=== PATIENT | male | born 1990 | race Caucasian/White ===

== ENCOUNTER 2017-09-13 19:08 | Emergency (ER) | payer MEDICAID, SELFPAY ==
[2017-09-13 19:09] VITALS: BP 135/77; PULSE 87; RESP 16; TEMP 36.9; O2SAT 99; BMI 33.9
--- NOTE | 2017-09-13 21:36 | ED.VISSUMM ---
- ER Visit Summary Date of Service: 09/13/17 Chief Complaint: headache History of Present Illness: The patient is a 27 M with headache for one day. Patient states he woke up with a mild headache that gradually worsened throughout the day. He took a nap to see if that would help and his headache was worse when he woke up. He has associated nausea. No blurry or double vision. He has had 1 prior headache to this 1 that he describes as a migraine. It is worse at the temples bilaterally. Patient denies any fever, cough, congestion, numbness or weakness in the arms or legs, or other complaints. Denies medical history other than a prior similar headache and a family history of migraines. Physical Examination: Vital signs: afebrile, hemodynamically stable, no hypoxia on room air General: well nourished, well developed, in no distress, sitting in bed with the lights off Skin: warm, dry, no rash, no pallor HEENT: normocephalic and atraumatic; PERRL, EOMI, nystagmus, moist mucous membranes neck is supple with full active range of motion, no meningismus Cardiovascular: regular rate and rhythm without murmurs, no peripheral edema, 2+ pulses all distal extremities Respiratory: No increased work of breathing, lungs are clear to auscultation bilaterally, no rales, rhonchi or wheezing Abdominal: Abdomen is soft, nontender with normoactive bowel sounds, no guarding or rebound, no masses MSK: Moves all extremities, no deformities, normal strength Neuro: Awake and alert, oriented ?4. No facial droop, sensation and motor function intact and symmetric Test Results: [] Emergency Department Course and Treatment: Patient was given IV fluids, Toradol, Benadryl and Compazine. No imaging was performed, as patient had a gradual onset of the headache and no risk factors/low suspicion for intracranial hemorrhage or mass lesion. After medications, patient had complete resolution of his headache and requested discharge home. He was able to ambulate in the light without any difficulty. Patient discharged home. Treatment Plan: [] Disposition: [] Impression: Migraine headache, resolved This note was generated with [employer] dictation software. It may contain incorrect words, spelling, and punctuation that were not noted in review of the chart prior to signing ED Disposition - Plan for ED Patient: Disposition: Home or Assisted Living Chief Complaint: Headache Instructions: ED Headache Migraine Referrals: Jojo De Los Santos DO [Primary Care Provider] - 3-5 Days if not improving
--- NOTE | 2017-09-13 21:39 | ED.DCSUM_ITS ---
- ER Visit Summary Date of Service: 09/13/17 Chief Complaint: headache History of Present Illness: The patient is a 27 M with headache for one day. Patient states he woke up with a mild headache that gradually worsened throughout the day. He took a nap to see if that would help and his headache was worse when he woke up. He has associated nausea. No blurry or double vision. He has had 1 prior headache to this 1 that he describes as a migraine. It is worse at the temples bilaterally. Patient denies any fever, cough, congestion, numbness or weakness in the arms or legs, or other complaints. Denies medical history other than a prior similar headache and a family history of migraines. Physical Examination: Vital signs: afebrile, hemodynamically stable, no hypoxia on room air General: well nourished, well developed, in no distress, sitting in bed with the lights off Skin: warm, dry, no rash, no pallor HEENT: normocephalic and atraumatic; PERRL, EOMI, nystagmus, moist mucous membranes neck is supple with full active range of motion, no meningismus Cardiovascular: regular rate and rhythm without murmurs, no peripheral edema, 2 + pulses all distal extremities Respiratory: No increased work of breathing, lungs are clear to auscultation bilaterally, no rales, rhonchi or wheezing Abdominal: Abdomen is soft, nontender with normoactive bowel sounds, no guarding or rebound, no masses MSK: Moves all extremities, no deformities, normal strength Neuro: Awake and alert, oriented ?4. No facial droop, sensation and motor function intact and symmetric Test Results: [] Emergency Department Course and Treatment: Patient was given IV fluids, Toradol , Benadryl and Compazine. No imaging was performed, as patient had a gradual onset of the headache and no risk factors/low suspicion for intracranial hemorrhage or mass lesion. After medications, patient had complete resolution of his headache and requested discharge home. He was able to ambulate in the light without any difficulty. Patient discharged home. Treatment Plan: [] Disposition: [] Impression: Migraine headache, resolved This note was generated with [employer] dictation software. It may contain incorrect words, spelling, and punctuation that were not noted in review of the chart prior to signing ED Disposition - Plan for ED Patient: Disposition: Home or Assisted Living Chief Complaint: Headache Instructions: ED Headache Migraine Referrals: Jojo De Los Santos DO [Primary Care Provider] - 3-5 Days if not improving
[2017-09-13] MEDS: Ketorolac 30 MG/ML Syringe IV (22:18)
[2017-09-13] MEDS: DiphenhydrAMINE 50 MG/ML Syringe IV (22:18)
[2017-09-13] MEDS: 0.9% Normal Saline 1,000 ML 999 ML IV (22:18)
--- NOTE | 2017-09-13 23:08 | ED.RN ---
PT STATES HEADACHE RESOLVED AND WOULD LIKE TO GO HOME, DR. ADLER MADE AWARE.
--- NOTE | 2017-09-13 23:10 | ED.DEP ---
ED Disposition - Plan for ED Patient: Disposition: Home or Assisted Living Chief Complaint: Headache Instructions: ED Headache Migraine Referrals: Jojo De Los Santos DO [Primary Care Provider] - 3-5 Days if not improving
[2017-09-13 23:28] VITALS: BP 139/75; PULSE 82; RESP 17; O2SAT 100
--- NOTE | 2017-09-13 23:29 | ED.RN ---
IV DC'ED, CATHETER INTACT, SMALL GAUZE DRESSING PLACED. DISCHARGE INSTRUCTIONS GIVEN TO AND REVIEWED WITH PATIENT, PATIENT DENIES QUESTIONS OR CONCERNS AND VOICES UNDERSTANDING OF DISCHARGE INSTRUCTIONS. PT AMBULATES OUT OF ROOM WITHOUT DIFFICULTY.
== END 2017-09-13 23:30 | disposition home or self-care (01) ==
PROVIDERS: Emergency Provider Emergency Medicine; Family Provider Family Medicine; PCP Family Medicine
DX: G43.909 Migraine, unspecified, not intractable, without status migrainosus (principal); Z72.0 Tobacco use
CPT/HCPCS: 96361; 96374; 96375; 99283; J7030; A4216

== ENCOUNTER 2018-05-06 18:09 | Emergency (ER) | payer MEDICAID, SELFPAY ==
[2018-05-06 18:10] VITALS: BP 140/88; PULSE 71; RESP 17; TEMP 36.9; O2SAT 100; BMI 32.1
--- NOTE | 2018-05-06 18:22 | RAD_ITS ---
STUDY: X-RAY - LEFT SHOULDER REASON FOR EXAM: Male, 27 years old. Pain TECHNIQUE: 4 view(s) of the shoulder. COMPARISON: None. FINDINGS: Normal glenohumeral articulation. Normal acromioclavicular joint. Normal acromion. Old healed fracture of the mid to distal clavicle Normal humeral head and visualized proximal humerus. The soft tissue structures are unremarkable. Normal visualized pulmonary apex. RAD/Shoulder min 2 Views IMPRESSION: Old healed fractures of left clavicle. No evidence for acute fracture or dislocation Electronically Signed: Jose Cruz Ariza MD at 19:12 EST , Service support ,
[2018-05-06 18:24] VITALS: BP 138/82; PULSE 78; RESP 16; O2SAT 97
--- NOTE | 2018-05-06 20:36 | ED.VISSUMM ---
- ER Visit Summary Date of Service: 05/06/18 Chief Complaint: Left shoulder pain History of Present Illness: The patient is a 27 M who presents with left shoulder pain that has been getting progressively worse over the past 1/2 weeks. Patient states the pain is constant. Patient states the pain as a constant ache but sharp with movement. Patient admits to some intermittent tingling down his left deltoid area. Patient denies any weakness. Patient denies any specific trauma or injury. Patient states the pain does radiate up into his neck. Physical Examination: Vital signs are stable. Patient is afebrile. Patient is in no acute distress. Musculoskeletal exam reveals tenderness over the left shoulder. Range of motion was limited all motions of the left shoulder secondary to pain. There is no deformity noted. Radial pulses are equal bilaterally. Sensation was intact to light touch in the radial, median, and ulnar areas. The remaining physical exam is within normal limits. Test Results: X-rays of the left shoulder were obtained. There is no acute fracture or osteophyte Emergency Department Course and Treatment: Patient was given a prescription for Naprosyn. Patient was instructed to use ice to the area. Patient was instructed to follow-up with his primary care physician for further evaluation in 7-10 days. Patient understood and was agreeable with the plan. All questions were answered. Disposition: Discharge home Impression: Left shoulder strain This note was generated with [employer] dictation software. It may contain incorrect words, spelling, and punctuation that were not noted in review of the chart prior to signing ED Disposition - Plan for ED Patient: Disposition: Home or Assisted Living Chief Complaint: Upper Extremity Injury Diagnosis: Left shoulder pain Instructions: ED Sprain Shoulder Prescriptions: Naproxen [Naprosyn] 500 mg PO BID PRN #20 tab Referrals: Jojo De Los Santos DO [Primary Care Provider] -
== END 2018-05-06 20:48 | disposition home or self-care (01) ==
PROVIDERS: Emergency Provider Emergency Medicine; Family Provider Family Medicine; PCP Family Medicine
DX: S46.912A Strain of unspecified muscle, fascia and tendon at shoulder and upper arm level, left arm, initial encounter (principal); R20.2 Paresthesia of skin; R51 Headache; R11.0 Nausea; X58.XXXA Exposure to other specified factors, initial encounter; Y93.9 Activity, unspecified; Y92.9 Unspecified place or not applicable; Z72.0 Tobacco use
CPT/HCPCS: 73030; 99282

== ENCOUNTER 2018-07-05 15:06 | Emergency (ER) | payer MEDICAID, SELFPAY ==
[2018-07-05 15:07] VITALS: BP 123/70; PULSE 95; RESP 16; TEMP 36.6; O2SAT 96; BMI 33.5
[2018-07-05] MEDS: Ketorolac 60 MG/2 ML Vial IM (15:39)
--- NOTE | 2018-07-05 15:45 | RAD_ITS ---
STUDY: X-RAY - LUMBAR SPINE REASON FOR EXAM: Male, 28 years old. Low back pain. No known injury. TECHNIQUE: 3 view(s) of the lumbar spine were obtained. COMPARISON: None FINDINGS: There is straightening of the normal lumbar lordosis. There is no substantial scoliosis. There is a normal alignment of the vertebrae. Normal vertebral bodies and endplates. Mild degree of disc space narrowing at the L5-S1 level. The soft tissue structures are unremarkable. RAD/Lumbar Spine 2 or 3 Views IMPRESSION: There is straightening of the normal lumbar lordosis. Mild degree of disc space narrowing at the L5-S1 level. Electronically Signed: Franco Donis MD at 16:03 EST Tel [phone], Service support ,
--- NOTE | 2018-07-05 16:26 | ED.VISSUMM ---
- ER Visit Summary Date of Service: 07/05/18 Chief Complaint: Back pain History of Present Illness: The patient is a 28 M who presents with back pain that has been getting worse over the past several days. Patient states he was walking when he felt some pain in his back. Patient states pain is constant throbbing but sharp at times. Patient states pain is worse with movement. Patient states the pain radiates to his left knee. Patient denies any paresthesias or weakness. Patient denies any bowel or bladder changes. Patient denies any saddle anesthesia. Patient denies any specific trauma or injury. Patient states he has had a history of prior back pain and was placed on muscle relaxers in the past. Patient states he took a muscle relaxer today with no relief. Physical Examination: Vital signs are stable. Patient is afebrile. Patient is in no acute distress. Neck is supple. Trachea is midline. There is no JVD noted. Oral mucosa is pink and moist. Musculoskeletal exam reveals tenderness over the lower lumbar spine in the midline. There is no bony crepitance or step-off. There is no edema or ecchymosis. There is some mild paraspinal tenderness as well. Straight leg raises were negative bilaterally. Strength is 5/5 bilaterally upper and lower extremities. There are no sensory deficits noted. Deep tendon reflexes are 2+/4 bilaterally in the Achilles and patellar reflexes. The remaining physical exam is within normal limits. Test Results: X-rays of the lumbar spine were obtained. There is no acute process noted. Emergency Department Course and Treatment: Patient was given an injection of Toradol here. Patient had some improvement with this. Patient was given 1 dose of [place] here. Patient was instructed use ice to the area. Patient was given prescriptions for Naprosyn for pain. Patient was also given a prescription for prednisone. Patient was instructed to follow-up with his primary care physician in 5-7 days. Patient was given a note for work to limit his bending and lifting. Patient understood and was agreeable with the plan. All questions were answered. Disposition: Discharge home Impression: Acute low back pain This note was generated with [employer] software. It may contain incorrect words, spelling, and punctuation that were not noted in review of the chart prior to signing ED Disposition - Plan for ED Patient: Disposition: Home or Assisted Living Chief Complaint: Back Diagnosis: Acute low back pain Instructions: ED Neck Back Pain General, ED Sciatica Prescriptions: Naproxen [Naprosyn] 500 mg PO BID PRN #20 tab predniSONE tablet 60 mg PO DAILY #15 tab Referrals: Jojo De Los Santos DO [Primary Care Provider] -
[2018-07-05] MEDS: HYDROcodone Bitartrate/Apap 5/325 Tablet PO (16:37)
[2018-07-05 16:38] VITALS: BP 121/69; PULSE 72; RESP 15; O2SAT 98
== END 2018-07-05 16:39 | disposition home or self-care (01) ==
PROVIDERS: Emergency Provider Emergency Medicine; Family Provider Family Medicine; PCP Family Medicine
DX: M54.5 Low back pain (principal); R51 Headache; Z72.0 Tobacco use
CPT/HCPCS: 72100; 96372; 99283

== ENCOUNTER 2018-11-17 22:27 | Emergency (ER) | payer SELFPAY ==
[2018-11-17 22:28] VITALS: BP 130/80; PULSE 102; RESP 16; TEMP 35.9; O2SAT 96; BMI 34.4
--- NOTE | 2018-11-17 22:55 | ED.VISSUMM ---
- ER Visit Summary Date of Service: 11/17/18 Chief Complaint: Bilateral foot pain History of Present Illness: The patient is a 28 M who presents with bilateral foot pain. This started a couple of hours ago. He complains of pain along the bottoms of his feet. He also complains of pain behind his ear on the right side of his neck that began after turning his head. It is worse with palpation or turning his head. No fevers chest pain shortness of breath nausea vomiting. He has not tried any medications at home. He states he does not like to take medications unless he has to. Physical Examination: Afebrile heart rate 102 vitals otherwise unremarkable Patient has pain at the base of the occiput on the right at the insertion of the paraspinal musculature this is worse with turning his head no midline tenderness Heart regular rate and rhythm Lungs are clear Patient has tenderness along the plantar surface of both feet no focal bony tenderness active full range of motion brisk capillary refill normal dorsalis pedis pulses Test Results: Not indicated Emergency Department Course and Treatment: Patient's neck pain appears to be musculoskeletal in nature. His foot pain is likely related to plantar fasciitis. He was advised on supportive care and discharged home. Treatment Plan: [] Disposition: Discharge Impression: Plantar fasciitis Neck strain This note was generated with [employer] dictation software. It may contain incorrect words, spelling, and punctuation that were not noted in review of the chart prior to signing ED Disposition - Plan for ED Patient: Referrals: Jojo De Los Santos DO [Primary Care Provider] -
--- NOTE | 2018-11-17 22:57 | ED.DEP ---
ED Disposition - Plan for ED Patient: Instructions: ED Plantar Fasciitis Referrals: Jojo De Los Santos DO [Primary Care Provider] -
[2018-11-17 23:01] VITALS: BP 128/78; PULSE 98; RESP 16; O2SAT 97
== END 2018-11-17 23:02 | disposition home or self-care (01) ==
LOC: ED 23:00
PROVIDERS: Emergency Provider Emergency Medicine; Family Provider Family Medicine; PCP Family Medicine
DX: M72.2 Plantar fascial fibromatosis (principal); S16.1XXA Strain of muscle, fascia and tendon at neck level, initial encounter; X58.XXXA Exposure to other specified factors, initial encounter; Y93.9 Activity, unspecified; Y92.9 Unspecified place or not applicable; Z72.0 Tobacco use
CPT/HCPCS: 99282

== ENCOUNTER 2019-02-07 16:58 | Emergency (ER) | payer SELFPAY ==
[2019-02-07 17:00] VITALS: BP 135/81; PULSE 115; RESP 16; TEMP 36.1; O2SAT 97; BMI 33.7
--- NOTE | 2019-02-07 17:46 | ED.VISSUMM ---
- ER Visit Summary Date of Service: 02/07/19 Chief Complaint: Sunburn History of Present Illness: The patient is a 28 M presenting with sunburn. Patient states that he was at a water park over the past 3 days. He woke up this morning and had burning redness to his left upper arm. 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 He denies injury. He states he tried aloe at home. Last tetanus is unknown. Physical Examination: Vitals are stable. Patient is afebrile. Alert no acute distress. HEENT exam is unremarkable. Neck is supple. Lungs are clear and equal bilaterally. Heart is regular rate and rhythm. Extremities 15 x 7 cm area of erythema with blistering left upper arm, erythema is not circumferential. Normal distal pulses. Skin is warm and dry. No focal neurologic deficit. Remainder of exam is unremarkable. Emergency Department Course and Treatment: Patient was given tetanus IM. He was given [place] x1. Advised burn care instructions. Advised to use cool compresses and aloe. Advised to follow-up with primary care physician. Advised return to ED if worsening complaints. Disposition: Discharge home Impression: Sunburn This note was generated with [employer] dictation software. It may contain incorrect words, spelling, and punctuation that were not noted in review of the chart prior to signing ED Disposition - Plan for ED Patient: Referrals: Jojo De Los Santos DO [Primary Care Provider] -
--- NOTE | 2019-02-07 17:49 | DCINST.ED_ITS ---
ED Disposition - Plan for ED Patient: Instructions: BURN, Thermal, (1'2'3') w/ Dressing Prescriptions: Hydrocodone Bitart/Apap 5-325 [[place] 5MG-325MG] 1 tablet PO Q6H PRN PRN 3 Days #6 tablet PRN Reason: Pain Referrals: Jojo De Los Santos DO [Primary Care Provider] -
[2019-02-07] MEDS: Diphth,Pertuss(Acell),Tet Vac 0.5 ML Vial IM (17:57)
[2019-02-07 18:14] VITALS: PULSE 81; RESP 19; O2SAT 98
--- NOTE | 2019-02-07 18:14 | ED.RN ---
THIS NURSE REVIEWED D/C INSTRUCTIONS WITH PT. PT VERBALIZED UNDERSTANDING OF INSTRUCTIONS. PT DENIES FURTHER NEEDS OR QUESTIONS AT THIS TIME
== END 2019-02-07 18:15 | disposition home or self-care (01) ==
PROVIDERS: Emergency Provider Emergency Medicine; Family Provider Family Medicine; PCP Family Medicine
DX: L55.9 Sunburn, unspecified (principal); Z72.0 Tobacco use
CPT/HCPCS: 90471; 90715; 99283

== ENCOUNTER 2020-07-22 08:33 | Emergency (ER) | payer MEDICAID, SELFPAY ==
[2020-07-22 08:33] VITALS: BP 117/73; PULSE 107; RESP 18; TEMP 37; O2SAT 99; BMI 38.3
[2020-07-22 08:47] VITALS: O2SAT 100
--- NOTE | 2020-07-22 08:47 | EKG12_ITS ---
Test Reason : CP Blood Pressure : / mmHG Vent. Rate : 098 BPM Atrial Rate : 098 BPM P-R Int : 154 ms QRS Dur : 096 ms QT Int : 342 ms P-R-T Axes : 046 087 026 degrees QTc Int : 436 ms Normal sinus rhythm Normal ECG Confirmed by FEDERICO ARGUETA, LEWIS ([id number]), script editor PILI STINSON ([id number]) on 07/24/2020 11:04:01 AM Referred By: CHET Confirmed By:LEWIS CABALLERO MD
--- NOTE | 2020-07-22 08:55 | RAD_ITS ---
STUDY: X-RAY CHEST REASON FOR EXAM: Male, 30 years old. Chest pain while at work TECHNIQUE: Single AP portable view of the chest. COMPARISON: Comparison is made with prior study dated 02/22/2017. FINDINGS: EKG electrodes are seen. Limited inspiratory effort. Mild increased linear markings at the lung bases suggestive of linear atelectasis. There is no demonstrated pleural abnormality. Normal size heart. Normal mediastinum and izzy. Normal visualized pulmonary arteries. Normal visualized aortic arch and descending thoracic aorta. Normal visualized thoracic spine. Normal visualized ribs, clavicles, and shoulders. There is no demonstrated abnormality of the visualized soft tissue structures of the upper abdomen. RAD/Chest 1 View (Portable) IMPRESSION: Linear atelectasis at the lung bases. Electronically Signed: Franco Donis MD at 9:09 EST , Service support ,
--- NOTE | 2020-07-22 08:56 | ED.VIS.GEN ---
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 Symptoms were noticed by him at 5 AM when he woke to go to work. He states that that point it was a ache across his chest. He did not think much of it as he has been experiencing some shoulder and back aches for a while. He tells me he was at work and began to get short of breath ache changed to a squeezing sensation and started bothering his left arm. It did not radiate anywhere else. No nausea vomiting or diaphoresis. He told his boss about it as he is having difficulty working and they called the ambulance. The ambulance performed a twelve-lead EKG was reviewed was reviewed by myself which does not show ST elevation or depression. The patient received aspirin and nitroglycerin. He states that the nitroglycerin helped a little bit but gave him a headache. He states now he pain is fully resolved except for a small sharp component just on the left side of his chest. He notes that he has a familial history of early coronary artery disease. He has never had a work-up before. He is a smoker. Past Medical History - Allergies and Home Meds Allergies/Adverse Reactions: Allergies cefaclor [From Ceclor] Allergy (Verified 07/22/20 08:35) Unknown Penicillins [PCN] Allergy (Verified 07/22/20 08:35) Unknown Sulfa (Sulfonamide Antibiotics) Allergy (Verified 07/22/20 08:35) Unknown Primary Care Physician: Jojo De Los Santos DO [STAFF PHYSICIAN] - Past Medical History: None Surgical History: noncontributory Smoking Status: Current every day smoker Drugs: None Review of Systems General: Denies: Chills, Fever, Sweats Eyes: Denies: Visual changes - bilaterally, Diplopia ENT: Denies: Rhinorrhea, Sore throat Cardiovascular: Reports: Chest pain. Denies: Palpitations Respiratory: Reports: Dyspnea. Denies: Cough, Dyspnea on exertion Gastrointestinal: Denies: Abdominal pain, Nausea, Vomiting, Diarrhea, Melena, Hematochezia Genitourinary: Denies: Dysuria, Hematuria, Frequency Musculoskeletal: Denies: Back pain, Extremity Pain Skin: Denies: Rash, Wounds Neurological: Denies: Headache, Weakness, Numbness Physical Exam Vital Signs/Narrative: Vital Signs Temp Pulse Resp BP Pulse Ox 07/22/20 08:47 100 07/22/20 08:33 98.6 F 107 H 18 117/73 99 Inital Vital Signs reviewed: Yes General: Well nourished, Well developed, Obese, No Acute Distress Head: Normocephalic, Atraumatic Eyes: Perrl, EOMI ENT: Moist mucous membranes, No rhinorrhea Neck: Supple, Nontender Cardiovascular: Regular rate, Regular rhythm, No murmurs Respiratory: No distress, CTA bilaterally, Chest nontender Abdomen: Soft, Nontender, Nondistended, Normal bowel sounds Back: Nontender, Normal Inspection Extremities: Nontender, No edema Skin: Normal color, No rash Neurological: Alert, Oriented x3, Cranial nerves II-XII grossly intact, Normal Strength, Normal Sensation Psychological: Normal affect, Normal Mood Diagnostic/Tx/Re-eval Clinical Impression(s) from Imaging Studies Chest X-Ray 07/22/20 08:55 IMPRESSION: Linear atelectasis at the lung bases. Electronically Signed: Franco Donis MD at 9:09 EST , Service support , Laboratory Last Values WBC 10.8 K/mm3 (4.4-11.0) 07/22/20 08:19 RBC 5.65 M/mm3 (4.6-6.2) 07/22/20 08:19 Hgb 16.3 g/dL (13.0-16.5) 07/22/20 08:19 Hct 49.8 % (40-54) 07/22/20 08:19 MCV 88.1 fL (80-94) 07/22/20 08:19 MCH 28.8 pg (27.0-32.0) 07/22/20 08:19 MCHC 32.7 g/dL (32-36) 07/22/20 08:19 RDW Std Deviation 42.2 fl (35.1-43.9) 07/22/20 08:19 RDW Coeff of Chris 12.9 % (11.6-14.6) 07/22/20 08:19 Plt Count 422 K/mm3 (150-450) 07/22/20 08:19 MPV 8.2 fl (6.2-12.0) 07/22/20 08:19 Immature Gran % (Auto) 0.400 % (0.0-0.9) 07/22/20 08:19 Neut % (Auto) 58.0 % (47-70) 07/22/20 08:19 Lymph % (Auto) 31.3 % (19-41) 07/22/20 08:19 [place] % (Auto) 7.8 % (0-10) 07/22/20 08:19 Eos % (Auto) 2.0 % (0-5) 07/22/20 08:19 Baso % (Auto) 0.5 % (0-1) 07/22/20 08:19 Absolute Neuts (auto) 6.2 X10^3/uL (2.0-7.7) 07/22/20 08:19 Absolute Lymphs (auto) 3.37 X10^3/uL (0.83-4.51) 07/22/20 08:19 Nucleated RBC % 0 % (0-5) 07/22/20 08:19 D-Dimer Quant (PE/DVT) <= 0.27 FEU/ug/m (0.27-0.49) 07/22/20 08:19 Sodium 139 mmol/L (136-145) 07/22/20 08:19 Potassium 3.9 mmol/L (3.5-5.1) 07/22/20 08:19 Chloride 104 mmol/L (98-107) 07/22/20 08:19 Carbon Dioxide 26.0 mmol/L (21.0-32.0) 07/22/20 08:19 Anion Gap 9 (5-15) 07/22/20 08:19 BUN 22 mg/dL (7-18) H 07/22/20 08:19 Creatinine 1.20 mg/dL (0.70-1.30) 07/22/20 08:19 Estim Creat Clear Calc 97.00 ml/min 07/22/20 08:19 Est GFR (MDRD) Af Amer 90 mL/min (>60) 07/22/20 08:19 Est GFR (MDRD) Non-Af 75 mL/min (>60) 07/22/20 08:19 BUN/Creatinine Ratio 18.3 RATIO (10-20) 07/22/20 08:19 Glucose 99 mg/dL (74-106) 07/22/20 08:19 Calcium 8.8 mg/dL (8.5-10.1) 07/22/20 08:19 Troponin I < 0.015 ng/mL (<0.045) 07/22/20 08:19 - EKG Initial EKG Interpretation: Sinus Rhythm - EKG demonstrates a normal sinus rhythm at a rate of 98. No concerning features of ACS or ectopy. - Medical Decision Making My impression of the single view portable chest x-ray is no acute process. EKG shows no concerning features of ACS. His D-dimer is negative. 2 sets of heart enzymes are negative including the second which represents 6 hours from the onset of symptoms. Chest x-ray is negative. This point I do not see evidence of ACS, pulmonary embolism, dissection or aneurysm, or life-threatening disease. Has been resting comfortably on the monitor. When asked that he obtain follow-up especially in light of his familial history of early coronary artery disease. Return if worsening or concerns. ED Disposition - Plan for ED Patient: Disposition: Home or Assisted Living Diagnosis: Chest pain Instructions: ED Chest Pain, Uncertain Cause Referrals: Homa Miller MD [STAFF PHYSICIAN] - (call to arrange ED Follow up for your chest pain and family history of early heart disease)
[2020-07-22 09:03] LABS: Absolute Lymphocyte Count 3.37 X10^3/uL (0.83-4.51); Absolute Neutrophil Count 6.2 X10^3/uL (2.0-7.7); Basophil# 0.05 X10^3/uL; Basophil% 0.5 % (0-1); Eosinophil# 0.22 X10^3/uL; Hematocrit 49.8 % (40-54); Hemoglobin 16.3 g/dL (13.0-16.5); Lymphocyte # 3.37 X10^3/ul (4.0); Lymphocyte % 31.3 % (19-41); Mean Corp Hgb Conc 32.7 g/dL (32-36); Mean Corpuscular Hgb 28.8 pg (27.0-32.0); Mean Corpuscular Volume 88.1 fL (80-94); Mean Platelet Vol. 8.2 fl (6.2-12.0); Monocyte# 0.84 X10^3/uL; Monocyte% 7.8 % (0-10); NRBC Flagged by Analyzer 0 % (0-5); Neutrophil # 6.23 X10^3/uL (2.7-7.7); Platelet Count 422 K/mm3 (150-450); RBC Distribution Width CV 12.9 % (11.6-14.6); RBC Distribution Width SD 42.2 fl (35.1-43.9); Red Blood Count 5.65 M/mm3 (4.6-6.2); White Blood Count 10.8 K/mm3 (4.4-11.0)
[2020-07-22 09:10] LABS: Anion Gap 9 (5-15); BUN 22 mg/dL (7-18); BUN/Creat Ratio 18.3 RATIO (10-20); Calcium,Total 8.8 mg/dL (8.5-10.1); Chloride 104 mmol/L (98-107); EST Glomerular Filtration Rate 75 mL/min (>60); Est Glom Filt Rate - Afr Amer 90 mL/min (>60); Glucose 99 mg/dL (74-106); Potassium 3.9 mmol/L (3.5-5.1); Sodium Level 139 mmol/L (136-145)
[2020-07-22 09:29] LABS: D-Dimer Quantitative (DVT/PE) <= 0.27 FEU/ug/m (0.27-0.49)
[2020-07-22 09:33] VITALS: BP 118/91; PULSE 88; RESP 16; O2SAT 99
[2020-07-22 10:00] VITALS: BP 118/91; PULSE 91; RESP 18; O2SAT 99
[2020-07-22 11:00] VITALS: BP 121/91; PULSE 98; RESP 13; O2SAT 98
== END 2020-07-22 11:58 | disposition home or self-care (01) ==
PROVIDERS: Emergency Provider Emergency Medicine
DX: R07.89 Other chest pain (principal); R06.00 Dyspnea, unspecified; E66.9 Obesity, unspecified; F17.200 Nicotine dependence, unspecified, uncomplicated
CPT/HCPCS: 71045; 80048; 84484; 85025; 85379; 93005; 99285; A4216

== ENCOUNTER 2020-08-22 22:54 | Emergency (ER) | payer MEDICAID, SELFPAY ==
[2020-08-22 22:54] VITALS: BP 146/92; PULSE 83; RESP 16; O2SAT 98
[2020-08-22 22:55] VITALS: BP 146/92; PULSE 83; RESP 16; TEMP 36.3; O2SAT 98; BMI 36.9
[2020-08-22] MEDS: Orphenadrine 60 MG/2 ML Ampul IM (23:10)
[2020-08-22] MEDS: Morphine 4 MG/ML Syringe IM (23:10)
[2020-08-22] MEDS: Ketorolac 60 MG/2 ML Vial IM (23:10)
--- NOTE | 2020-08-22 23:15 | ED.DCSUM_ITS ---
History of Present Illness Chief Complaint: Back Informant: Patient Onset: Yesterday Context: Gradual Onset Timing: Continuous Current Severity: Moderate Maximum Severity: Severe Narrative: The patient is a 30-year-old male presents to the emergency department back pain. Patient was in his normal state of health. He was helping someone move a washer and dryer for his sister yesterday. He states he felt a small twinge in his back. He states that today, he went to step down. He states he got a shooting pain all the way down his leg and felt like he was going to give out. He states if he bends or twists, the pain comes back. He denies any numbness in the groin. He denies any difficulty urinating or moving his bowels. He has no history of IV drug abuse. He denies any direct trauma. Prior similar symptoms: Yes Recent Illness/Hospitalization: No Past Medical History - Allergies and Home Meds Allergies/Adverse Reactions: Allergies cefaclor [From Ceclor] Allergy (Verified 08/22/20 23:04) Unknown Penicillins [PCN] Allergy (Verified 08/22/20 23:04) Unknown Sulfa (Sulfonamide Antibiotics) Allergy (Verified 08/22/20 23:04) Unknown Primary Care Physician: Care Physician,No Primary [Primary Care Provider] - Prior records reviewed: Yes Past Medical History: None Surgical History: noncontributory Smoking Status: Current every day smoker Review of Systems General: Denies: Chills, Fever, Sweats Eyes: Denies: Visual changes - bilaterally, Diplopia ENT: Denies: Rhinorrhea, Sore throat Cardiovascular: Denies: Chest pain, Palpitations Respiratory: Denies: Dyspnea, Cough, Dyspnea on exertion Gastrointestinal: Denies: Abdominal pain, Nausea, Vomiting, Diarrhea, Melena, Hematochezia Genitourinary: Denies: Dysuria, Hematuria, Frequency Musculoskeletal: Reports: Back pain. Denies: Extremity Pain Skin: Denies: Rash, Wounds Neurological: Denies: Headache, Weakness, Numbness Physical Exam Vital Signs/Narrative: Vital Signs Temp Pulse Resp BP Pulse Ox 08/22/20 22:55 97.3 F L 83 16 146/92 H 98 08/22/20 22:54 83 16 146/92 H 98 Inital Vital Signs reviewed: Yes General: Well nourished, Well developed, No Acute Distress Head: Normocephalic, Atraumatic Eyes: Perrl, EOMI ENT: Moist mucous membranes, No rhinorrhea Neck: Supple, Nontender Cardiovascular: Regular rate, Regular rhythm, No murmurs Respiratory: No distress, CTA bilaterally, Chest nontender Abdomen: Soft, Nontender, Nondistended, Normal bowel sounds Back: Normal Inspection, - - Patient has paraspinal tenderness on the right. No midline tenderness. Straight leg does recreate the paresthesias. His pulses are normal. His reflexes are normal. No weakness of dorsiflexion, plantar flexion, or extensor hallucis longus. Extremities: Nontender, No edema Skin: Normal color, No rash Neurological: Alert, Oriented x3, Cranial nerves II-XII grossly intact, Normal Strength, Normal Sensation Psychological: Normal affect, Normal Mood Diagnostic/Tx/Re-eval - Medical Decision Making The patient does have evidence of an acute sciatica. He has no evidence of cauda equina. He has no red flag symptoms. He has no other dangerous process. I am going to treat him a short course of analgesics and antispasmodics. He was counseled on range of motion exercises. At this point, he will be discharged home. Impression 1. Right-sided sciatica ED Disposition - Plan for ED Patient: Instructions: ED Sciatica Prescriptions: cycloBENZAPRine HCl [Flexeril] 10 mg PO TID PRN #20 tab PRN Reason: Muscle Spasm Prescription Printed MethylPREDNISolone DosePak [Medrol DosePak] 4 mg PO UD #1 box Prescription Printed Hydrocodone Bitart/Apap 5-325 [[place] 5MG-325MG] 1 tab PO Q6H PRN PRN 3 Days #10 tab PRN Reason: Pain Prescription Printed Referrals: Care Physician,No Primary [Primary Care Provider] -
[2020-08-22 23:23] VITALS: PULSE 87; O2SAT 98
== END 2020-08-22 23:35 | disposition home or self-care (01) ==
LOC: ED 23:33
PROVIDERS: Emergency Provider Emergency Medicine
DX: M54.41 Lumbago with sciatica, right side (principal)
CPT/HCPCS: 96372; 99282